=== PATIENT | male | born 1945 | race Caucasian/White ===

== ENCOUNTER → 2016-12-14 | Outpatient (CLI) | payer MEDICARE, BC ==
[~2016-12-14] MED LIST: ASPIRIN 32325 MG/TAB PO; COUMADIN 3MG3 MG/TAB PO; COUMADIN4 MG PO; COUMADIN7.5 MG PO; FENOFIBRATE160 MG PO; LIPITOR80 MG PO; LOPRESSOR50 MG PO; MULTAQ400 MG PO; NITROGLYCERIN0.4 MG SL; PLAVIX 75MG TAB75 MG PO; PRAVASTATIN40 MG PO; ST. JOSEPH81 M2 PO; TAPAZOLE5 MG PO; TIKOSYN0.125 MG PO; TIKOSYN0.25 MG PO; TOPROL PO; ZESTRIL2.5 MG PO
== END ==
LOC: COL.RAD 09:13
DX: Z13.6 Encounter for screening for cardiovascular disorders (principal)

== ENCOUNTER 2017-12-02 23:17 | Emergency (ER) | payer MEDICARE, BC ==
[~2017-12-02] VITALS: Ht 175.3 cm; Wt 93.2 kg
[2017-12-02 23:37] LABS: BASO # 0.1 (0.0-0.2); BASO % 0.6 % (0.0-2.0); EOS # 0.7 (0.0-0.7); EOS % 8.6 % (0-4.0); GRAN % 50.6 % (42.2-75.2); HEMATOCRIT 41.3 % (42.0-52.0); HEMOGLOBIN 14.3 g/dl (13.5-18.0); LYMPH # 2.5 (1.2-3.4); LYMPH % 31.5 % (20.0-51.0); MEAN CELL VOLUME 90 fl (80.0-100.0); MEAN CORPUSCULAR HEMOGLOBIN 31 pg (27.0-31.0); MEAN CORPUSCULAR HGB CONC 35 g/dl (33.0-37.0); MEAN PLATELET VOLUME 11.9 fl (7.4-10.4); MONO # 0.6 (0.1-0.6); MONO % 8.2 % (1.7-9.3); PLATELET COUNT 142 K/mm3 (130-400); RED BLOOD COUNT 4.57 M/mm3 (4.20-5.60); REDCELL DISTRIBUTION WIDTH-CV 12.9 % (11.5-14.5)
[2017-12-02 23:48] LABS: ALANINE AMINOTRANSFERASE 37 U/L (21-72); ALBUMIN 4.3 gm/dL (3.5-5.0); ALKALINE PHOSPHATASE 80 U/L (50-136); ANION GAP 11 mmol/L (7-16); AST,SGOT 28 U/L (15-37); BILIRUBIN,TOTAL 0.5 mg/dL (0.0-1.0); BLOOD UREA NITROGEN 28 mg/dL (9-20); CALCIUM 9.3 mg/dL (8.4-10.2); CARBON DIOXIDE 21 mmol/L (22-30); CHLORIDE 108 mmol/L (98-107); CREATININE, serum 1.15 mg/dL (0.66-1.25); GLUCOSE 179 mg/dL (74-106); POTASSIUM 3.6 mmol/L (3.4-5.0); SODIUM 140 mmol/L (137-145); TOTAL PROTEIN 7.3 gm/dL (6.4-8.2)
[2017-12-03] LABS: TROPONIN-I < 0.012 ng/mL (0.000-0.034)
[2017-12-03 00:47] LABS: COLLECTION METHOD CLEAN CATCH
[2017-12-03 00:52] LABS: MUCOUS Present /lpf; PH 7 (5-8); SQUAMOUS EPITHELIAL None Seen /hpf; URINE APPEARANCE Clear; URINE BACTERIA None Seen /hpf; URINE BILIRUBIN Negative (NEGATIVE); URINE BLOOD Negative (NEGATIVE); URINE COLOR Yellow; URINE GLUCOSE 1+ (NEGATIVE); URINE KETONE Negative (NEGATIVE); URINE LEUKOCYTE ESTERASE Negative (NEGATIVE); URINE NITRATE Negative (NEGATIVE); URINE PROTEIN(semi-quant) Negative (NEGATIVE); URINE RBC 0-2 /hpf; URINE UROBILINOGEN Negative (NEGATIVE)
[2017-12-03 01:56] LABS: PROTHROMBIN TIME 11.3 SECONDS (9.7-12.8)
[2017-12-03 03:00] VITALS: BP 135/98; PULSE 75
== END 2017-12-03 03:00 | disposition short-term general hospital (02) ==
LOC: COL.ER 23:17
PROVIDERS: Emergency Medicine
DX: R42 Dizziness and giddiness (principal); R11.2 Nausea with vomiting, unspecified; Z79.82 Long term (current) use of aspirin; Z79.01 Long term (current) use of anticoagulants
CPT/HCPCS: J2060; J2405; J7030; J7050

== ENCOUNTER 2017-12-14 11:25 | Day surgery (SDC) | payer MEDICARE, BC ==
[~2017-12-14] VITALS: Ht 175.3 cm; Wt 93.1 kg
[~2017-12-14 11:25] MED LIST changes: +ASPIRIN 81M81 MG/TA2 PO; +PRAVACHOL 40MG40 MG PO; -PRAVASTATIN40 MG PO; -ST. JOSEPH81 M2 PO
[2017-12-14 12:01] LABS: HEMATOCRIT 44.8 % (42.0-52.0); HEMOGLOBIN 15.1 g/dl (13.5-18.0); MEAN CELL VOLUME 91 fl (80.0-100.0); MEAN CORPUSCULAR HEMOGLOBIN 31 pg (27.0-31.0); MEAN CORPUSCULAR HGB CONC 34 g/dl (33.0-37.0); MEAN PLATELET VOLUME 11.7 fl (7.4-10.4); PLATELET COUNT 168 K/mm3 (130-400)
[2017-12-14] MEDS ORDERED: COZAAR 25MG25 MG/TAB PO (12:05)
[2017-12-14] MEDS ORDERED: SYNTHROID0.05 MG/TA PO (12:06)
[2017-12-14 12:07] LABS: INR 1.1 (0.8-3.0); PROTHROMBIN TIME 12.5 SECONDS (9.7-12.8)
[2017-12-14 12:15] LABS: CALCIUM 9.5 mg/dL (8.4-10.2); CREATININE, serum 1.25 mg/dL (0.66-1.25); POTASSIUM 4.5 mmol/L (3.4-5.0)
[2017-12-14 13:43] VITALS: BP 147/85; PULSE 48
[2017-12-14 14:25] VITALS: BP 114/69; PULSE 57
== END 2017-12-14 15:25 | disposition home or self-care (01) ==
LOC: COL.CAR 11:25
PROVIDERS: Internal Medicine Interventional Cardiology
DX: Z45.02 Encounter for adjustment and management of automatic implantable cardiac defibrillator (principal); I25.10 Atherosclerotic heart disease of native coronary artery without angina pectoris; I48.0 Paroxysmal atrial fibrillation; E78.5 Hyperlipidemia, unspecified; E05.90 Thyrotoxicosis, unspecified without thyrotoxic crisis or storm; Z95.5 Presence of coronary angioplasty implant and graft; Z82.49 Family history of ischemic heart disease and other diseases of the circulatory system
CPT/HCPCS: J2250; J3010; J7030

== ENCOUNTER 2023-10-05 09:45 | Outpatient (RCR) | payer MEDICARE, BC ==
[~2023-10-05 09:45] MED LIST changes: +COZAAR 25MG25 MG/TAB PO; +SYNTHROID0.05 MG/TA PO
== END 2023-10-19 | disposition home or self-care (01) ==
LOC: WSST
DX: R13.12 Dysphagia, oropharyngeal phase (principal)